=== PATIENT | female | born 1970 | race Two or more races ===

== ENCOUNTER 2019-02-02 11:30 | Outpatient (CLI) | payer BC | END 2019-02-02 11:45 | disposition home or self-care (01) | LOC: D.MAMMO 11:30 | PROVIDERS: ATTEND Family Medicine | DX: Z12.31 Encounter for screening mammogram for malignant neoplasm of breast (principal) ==

== ENCOUNTER 2019-03-16 19:00 | Outpatient (CLI) | payer BC | END 2019-03-16 23:59 | disposition home or self-care (01) | LOC: D.MAMMO 19:00 | PROVIDERS: ATTEND Family Medicine | DX: R92.8 Other abnormal and inconclusive findings on diagnostic imaging of breast (principal) ==